=== PATIENT | female | born 2000 | race Two or more races ===

== ENCOUNTER 2024-05-11 19:04 | Emergency (ER) | payer MEDICAID, OTHER ==
[~2024-05-11] VITALS: Ht 165.1 cm; Wt 101.2 kg
[2024-05-11 21:03] VITALS: BP 116/63
[2024-05-11] MEDS: IBUPROFEN 800 MG TAB PO ONE (21:13)
[2024-05-11] MEDS ORDERED: IBUP-1455 PO (21:14)
[2024-05-11 21:34] VITALS: PULSE 91; RESP 16; O2SAT 96
== END 2024-05-11 21:37 | disposition home or self-care (01) ==
LOC: ER 19:04
DX: S93.402A Sprain of unspecified ligament of left ankle, initial encounter (principal); W10.9XXA Fall (on) (from) unspecified stairs and steps, initial encounter; Y93.89 Activity, other specified; Y92.89 Other specified places as the place of occurrence of the external cause; Y99.8 Other external cause status
CPT/HCPCS: 29515; 73610